=== PATIENT | female | born 1975 | race Caucasian/White ===

== ENCOUNTER 2024-07-30 09:49 | Day surgery (SDC) | payer OTHER ==
[~2024-07-30] VITALS: Ht 160 cm; Wt 83.0 kg
[2024-07-30] MEDS ORDERED: fentaNYL citrate 0.05 MG/ML VIAL ONE (11:18)
[2024-07-30] MEDS ORDERED: MIDAZOLAM 5 MG/5 ML VIAL ONE ×2 (11:18→11:44)
[2024-07-30] MEDS: MIDAZOLAM 5 MG/5 ML VIAL IV ONE (11:29)
[2024-07-30] MEDS: fentaNYL citrate 0.05 MG/ML VIAL IVP ONE (11:30)
[2024-07-30] MEDS: LIDOCAINE 2% 100 MG/5 ML UJET TP ONE (11:54)
== END 2024-07-30 13:20 | disposition home or self-care (01) ==
LOC: MOR 09:49 → MMU 09:58 → EDBD 12:30 → MOR 13:20
PROVIDERS: ATTEND Internal Medicine Gastroenterology
DX: Z12.11 Encounter for screening for malignant neoplasm of colon (principal); K63.5 Polyp of colon; K21.9 Gastro-esophageal reflux disease without esophagitis; K29.70 Gastritis, unspecified, without bleeding
CPT/HCPCS: 36415; 43239; 45380; 45385; 86677; J2250; J3010